=== PATIENT | male | born 1985 | race Caucasian/White ===

== ENCOUNTER 2021-12-29 11:10 | Outpatient (CLI) | payer OTHER, SELFPAY ==
[2021-12-29 21:35] LABS: Albumin* 4.8 g/dL (3.3-5.0); Chloride* 103 mmol/L (96-114)
[2021-12-29 21:36] LABS: Potassium* 4.3 mmol/L (3.6-5.1); Sodium* 138 mmol/L (135-149)
[2021-12-29 21:38] LABS: Aspartate Amino Transferase* 28 U/L (12-35); Bilirubin Total* 0.5 mg/dL (0.1-1.5); Carbon Dioxide* 27 mmol/L (20-32); Creatinine* 0.8 mg/dL (0.5-1.5); Estimated Glomerular Filt Rate 117 ml/min; Total Protein* 7.5 g/dL (6.0-8.3)
[2021-12-29 21:39] LABS: Alanine Aminotransferase* 23 U/L (4-50); Alkaline Phosphatase* 114 U/L (40-150); Blood Urea Nitrogen* 13 mg/dL (5-24); Calcium* 9.4 mg/dL (8.4-10.6); Glucose* 73 mg/dL (60-115)
== END 2021-12-29 11:11 | disposition home or self-care (01) ==
PROVIDERS: PCP Family Medicine; Visit Provider Family Medicine
DX: K21.9 Gastro-esophageal reflux disease without esophagitis (principal)
CPT/HCPCS: 80053

== ENCOUNTER 2021-12-30 08:39 | Outpatient (CLI) | payer OTHER, SELFPAY ==
[2021-12-30 16:21] LABS: H pylori Ag Stool* Negative (Negative)
== END 2021-12-30 08:40 | disposition home or self-care (01) ==
LOC: FRMREF 08:40
PROVIDERS: PCP Family Medicine; Visit Provider Family Medicine
DX: K21.9 Gastro-esophageal reflux disease without esophagitis (principal)
CPT/HCPCS: 87338

== ENCOUNTER 2022-03-23 14:31 | Outpatient (CLI) | payer OTHER, SELFPAY ==
[2022-03-23 21:37] LABS: Chloride* 101 mmol/L (96-114); Potassium* 4.6 mmol/L (3.6-5.1); Sodium* 140 mmol/L (135-149)
[2022-03-23 21:40] LABS: Blood Urea Nitrogen* 18 mg/dL (5-24); Carbon Dioxide* 31 mmol/L (20-32); Creatinine* 0.8 mg/dL (0.5-1.5); Estimated Glomerular Filt Rate 117 ml/min; Glucose* 99 mg/dL (60-115)
[2022-03-23 21:41] LABS: Calcium* 9.9 mg/dL (8.4-10.6)
== END 2022-03-23 14:32 | disposition home or self-care (01) ==
LOC: FRMREF 14:32
PROVIDERS: PCP Family Medicine; Visit Provider Family Medicine
DX: Z01.818 Encounter for other preprocedural examination (principal); J34.2 Deviated nasal septum
CPT/HCPCS: 80048

== ENCOUNTER 2022-04-01 08:32 | Day surgery (SDC) | payer OTHER, SELFPAY ==
[2022-04-01] VITALS (12 sets, daily range): BP systolic 120–136; BP diastolic 75–88; PULSE 16–85; RESP 16; TEMP 36.1–36.6; O2SAT 92–99; BMI 24.9
[2022-04-01] MEDS: LACTATED RINGERS 1000 ML 1,000 ML 100 ML IV (08:45)
[2022-04-01] MEDS: SODIUM CHLORIDE 0.9 % (FLUSH) 10 ML SYRINGE IVF (09:23)
[2022-04-01] MEDS: COCAINE HCL 4 % 4 ML SOLUTION NOSTRIL-B (10:38)
[2022-04-01] MEDS: AYR SALINE NASAL GEL 1 APPLIC NOSTRIL-B (10:38)
[2022-04-01] MEDS: BUPIVACAINE 0.5%/EPINEPHRINE 0.9 MG (30.9 ML) INJECTION (10:38)
[2022-04-01] MEDS: MUPIROCIN 1 GM PACKET 1 APPLIC TOPICAL (10:52)
--- NOTE | 2022-04-01 11:01 | W.PM.ENTPROC ---
Procedure Note Date of procedure: 04/01/22 Procedure: Preop diagnosis nasal obstruction, deviated septum, right inferior turbinate hypertrophy Postoperative diagnosis same Procedure nasal septoplasty, submucous partial resection right inferior turbinate Under general endotracheal anesthesia patient was prepped and draped usual fashion. The nose was injected and decongested. A right hemitransfixion incision was made left anterior and posterior tunnels were created. The skin overlying the septal deflection was quite thin. Nonetheless I was able to preserve all of the mucosa. A vertical incision was made through the cartilage anterior to the bone and a right posterior tunnel created. The posterior deflected portions of septal bone were resected. An inferior 2 mm strip of septal cartilage was resected leaving a normal amount for dorsal and tip support the septum was now midline. The hemitransfixion was closed with 2 4-0 chromic sutures after 1st replacing 2 pieces 1 of bone 1 of cartilage into the septal pocket. Silastic stents were secured with 3-0 nylon. A stab incision was made in the anterior head of the right inferior turbinate a tunnel created with a Alexander dissector. A conservative anterior submucous resection was performed with Roberta forceps. The john bone was outfractured and the Coblation Wand used then to cauterize the inferior 10% intramurally. Merocel packing was placed on either side of the nose after 1st coating in Bactroban. The patient procedure well was taken recovery in satisfactory condition. Blood loss less than 25 mL complications 0 Surgeon: Neil Richardson MD
--- NOTE | 2022-04-01 11:15 | W.ANESCHARGE ---
Anesthesia Charges Start Date/Time Anesthesia Start Date: 04/01/22 Anesthesia Start Time: 10:20 Stop Date/Time Anesthesia Stop Date: 04/01/22 Anesthesia Stop Time: 11:09 Summary Emergency: No
== END 2022-04-01 12:35 | disposition home or self-care (01) ==
PROVIDERS: PCP Family Medicine; Visit Provider Otolaryngology
PROC: (CPT 30520; principal; 2022-04-01 10:00)
DX: J34.2 Deviated nasal septum (principal); J34.3 Hypertrophy of nasal turbinates
CPT/HCPCS: 30520; 30140; 00160; A9270; J0330; J1100; J2250; J2405; J2704; J3010; J7120

== ENCOUNTER 2023-09-04 14:24 | Outpatient (CLI) | payer OTHER, SELFPAY | END 2023-09-04 14:25 | disposition home or self-care (01) | PROVIDERS: PCP Family Medicine; Visit Provider Family Medicine | DX: M79.651 Pain in right thigh (principal); M79.652 Pain in left thigh | CPT/HCPCS: 93924 ==